=== PATIENT | male | born 2000 | race Two or more races ===

== ENCOUNTER → 2021-01-11 | Emergency (ER) | payer OTHER ==
[~2021-01-11] VITALS: Ht 175.3 cm; Wt 65.0 kg
[~2021-01-11] MED LIST: CEPH-585 PO; HYDR-3964 PO; HYDROcodone/acetaminophen 5mg/325mg tablet PO ONE; LIDOcaine 1% W/epiNEPHrine 1:200,000 10ml vial IJ ONE; LIDOcaine 1% w/epiNEPHrine 1:200,000 30ml vial IJ ONE; ONDA4TAB6 PO; TETanus/Pertussis (Acell)/Diphther VAC/PF (Tdap-Adult) 0.5ml syringe IMVAC ONE; bacitracin 15gm ointment TP ONE; cephalexin 250mg capsule PO ONE; ondansetron 4mg rapidly disintigrating tab PO ONE
[2021-01-11 16:00] VITALS: BP 120/83
== END | disposition home or self-care (01) ==
LOC: ER 15:57
DX: S82.101A Unspecified fracture of upper end of right tibia, initial encounter for closed fracture (principal); S83.104A Unspecified dislocation of right knee, initial encounter; X50.9XXA Other and unspecified overexertion or strenuous movements or postures, initial encounter; Y93.39 Activity, other involving climbing, rappelling and jumping off; Y92.89 Other specified places as the place of occurrence of the external cause; Y99.8 Other external cause status
CPT/HCPCS: 12001; 12002; 29505; 73552; 73564; 73590; 90471; 90715; 99284